=== PATIENT | male | born 1995 | race Caucasian/White ===

== ENCOUNTER 2021-02-17 20:38 | Emergency (ER) | payer OTHER, SELFPAY ==
[2021-02-17 20:40] VITALS: BP 151/87; PULSE 93; RESP 20; TEMP 37.1; O2SAT 98; BMI 40.1
--- NOTE | 2021-02-17 21:55 | ED.GENADULT ---
HPI - General Adult General Chief complaint: General Medical Stated complaint: Abscess Time Seen by Provider: 02/17/21 21:54 Source: patient Mode of arrival: ambulatory History of Present Illness HPI narrative: 25-year-old male without significant past medical history presents with pain and swelling at the gluteal cleft and states that he has had this before. He denies any associated fever, chills, difficulties with bowel movement. Related Data Allergies Allergy/AdvReac Type Severity Reaction Status Date / Time No Known Allergies Allergy Verified 02/17/21 20:40 Review of Systems Review of Systems: Pertinent positives and negatives as stated in HPI 10 point review of systems is otherwise negative. PMFSH Past Medical History Source: nursing notes reviewed Medical History Asthma Rectal abscess Social History Social History Advance Directives: No Advance Directives Information Provided: No Physical Exam Vital Signs: Vital Signs: Last Vital Signs Temp 98.0 F 02/17/21 22:00 Pulse 69 02/17/21 22:00 Resp 16 02/17/21 22:00 BP 168/83 H 02/17/21 22:00 Pulse Ox 99 02/17/21 22:00 Body Mass Index 40.1 VITAL SIGNS: Reviewed. GENERAL: Well developed, well nourished, in no acute distress. HEAD: Normocephalic/atraumatic EYES: PERRLA, EOMI OROPHARYNX: no oral lesions noted, posterior pharynx clear NECK: Supple, no adenopathy LUNGS: Normal breath sounds. No adventitious sounds or accessory muscle use. SpO2<99> CARDIOVASCULAR: Regular rate and rhythm without noted murmurs ABDOMEN: Soft, non-tender, non-distended with bowel sounds. Gluteus: Erythema, swelling with fluctuance in the center at location consistent with pilonidal cyst NEUROLOGIC: Alert and oriented x 4. Course Course Course Narrative: 25-year-old male history and clinical presentation consistent with pilonidal cyst. Patient underwent successful incision and drainage of the site with placement of packing. Patient was discharged in stable condition and instructed to follow-up with Surgical Services by calling the office in the morning. Procedures Abscess I/D Site: other (Pilonidal) Sedation/analgesia: none Local Anesthetic: lidocaine 2% and with epi Amount of anesthesia used (mL): 2 Technique: incised with blade Amount of fluid expressed (mL): 20 Sent for culture/gram staining?: No Irrigation: Yes Packing used?: iodoform Complications: pain Discharge Plan Discharge Clinical Impression: Chronic recurrent pilonidal cyst Patient Disposition: Home, Self-Care Instructions: Pilonidal Cyst (ED) Additional Instructions: Recommend using Tylenol/ibuprofen, [id number] for pain control as needed. You may remove the packing in 24-48 hours. You to follow-up with Surgical Services, the referral as listed below, please call the office Thursday morning. Return the emergency department for any acute worsening of symptoms. Referrals: Cleveland Dawson MD [Physician] - 2 days (Evaluation and management for recurrent pilonidal cyst. Incision and drainage performed here in the ER 02/17 and packing placed antibiotics deemed unnecessary at the time.)
[2021-02-17 22:00] VITALS: BP 168/83; PULSE 69; RESP 16; TEMP 36.7; O2SAT 99
[2021-02-17] MEDS: Lidocaine/Epineph/Tetracaine 3 ML GEL.PF.APP 2 ML TOPICAL (22:04)
[2021-02-17] MEDS: Lidocaine HCl 2% PF/Epi 1:200 20 ML VIAL INFILTRATI (23:01)
[2021-02-17] MEDS: Ketorolac Tromethamine 15 MG/ML VIAL IM (23:14)
[2021-02-17] MEDS: Acetaminophen 325 MG TABLET 975 MG PO (23:14)
== END 2021-02-17 23:18 | disposition home or self-care (01) ==
PROVIDERS: Emergency Provider Student in an Organized Health Care Education/Training Program
DX: L05.01 Pilonidal cyst with abscess (principal)
CPT/HCPCS: 10080; 90471; 99284; J1885

== ENCOUNTER 2022-10-02 05:17 | Emergency (ER) | payer OTHER, SELFPAY ==
--- NOTE | 2022-10-02 | ECG_ITS ---
Test Reason : CHEST CONGESTION Blood Pressure : / mmHG Vent. Rate : 090 BPM Atrial Rate : 090 BPM P-R Int : 212 ms QRS Dur : 086 ms QT Int : 340 ms P-R-T Axes : 041 037 048 degrees QTc Int : 415 ms Sinus rhythm with 1st degree A-V block Nonspecific T wave abnormality Abnormal ECG No previous ECGs available Referred By: Generic ED Physician Electronically Signed By:Tj Stauffer
[2022-10-02 05:52] VITALS: BP 154/99; PULSE 101; RESP 20; TEMP 37.2; O2SAT 98; BMI 41.3
[2022-10-02 06:23] VITALS: PULSE 88; O2SAT 97
[2022-10-02 06:27] LABS: MANUAL DIFF FLAG NO
[2022-10-02 06:31] LABS: Basophils Percent Auto 0.3 % (0-2); Hematocrit 43.3 % (42.0-52.0); Hemoglobin 15.1 g/dl (14.0-18.0); Imm Gran Abs Auto 0.04 X10*3/uL (0.00-0.03); Imm Gran Pct Auto 0.3 % (0.0-0.4); Lymphocytes Absolute Auto 1.3 X10*3/uL (1.2-4.9); Mean Corpuscular HGB Conc 34.9 g/dl (31.0-36.0); Mean Corpuscular Hemoglobin 28.7 pg (27.0-33.0); Mean Corpuscular Volume 82.2 fL (80.0-98.0); Mean Platelet Volume 9.6 fL (9.4-12.4); Monocytes Percent Auto 8.9 % (2-11); Neutrophils Absolute Auto 9.2 x10*3/uL (2.0-8.3); Neutrophils Percent Auto 79.5 % (45-73); Platelet Count 247 X10*3/uL (160-400); Red Blood Count 5.27 X10*6/uL (4.60-5.80); Red Cell Distribution Width 12.2 % (11.0-16.0); White Blood Count 11.6 X10*3/uL (4.8-10.8)
[2022-10-02 06:42] LABS: Anion Gap 13 (12-20); Blood Urea Nitrogen 8 mg/dL (9-16); Calcium 9.1 mg/dL (8.4-10.2); Carbon Dioxide 25 mmol/L (22-29); Chloride 104 mmol/L (96-108); Creatinine Clr Calc Pharmacy 146.3; Estimated Glomerular Filt Rate > 60; Glucose Random 115 mg/dL (60-115); Potassium 3.6 mmol/L (3.3-5.1); Sodium 138 mmol/L (135-145)
[2022-10-02 06:44] LABS: COVID-19 Test Negative (Negative); IDNOW Serial# 08D9AD1C
[2022-10-02 06:47] LABS: IDNOW Serial# 16C4AD1C; Influenza A Negative (Negative); Influenza B2 Negative (Negative)
[2022-10-02 06:50] LABS: Troponin-I High Sensitivity 6.3 ng/L (<3.5-35.0)
--- NOTE | 2022-10-02 07:07 | ED_ITS ---
HPI - URI/Sore Throat General Chief Complaint: Upper Respiratory Symptoms Stated Complaint: Possible COVID Time Seen by Provider: 10/02/22 06:51 Source: patient Mode of arrival: ambulatory Limitations: no limitations History of Present Illness HPI Narrative: 27-year-old male who presents emergency department for evaluation of headache, back pain, chest pain, fatigue and body aches. Patient states that his symptoms started yesterday at 11:00. He states that he has a headache which is a constant, pounding sensation in the back of his head which is 4/10. He denied neck pain or neck stiffness. He states that he also is having chest pain, he describes this is a dull ache located across his anterior chest which is worse with breathing and is 7/10. He is also complaining of a constant, throbbing lower back pain which is 10/10. He states that he had a subjective fever and chills, he had sweats. He denied rhinorrhea, sore throat or cough. He states he has mild shortness of breath with exertion. Denied nausea had 1 episode of vomiting yesterday. He denied diarrhea. He has noted urinary frequency and dysuria. He states that he has lost his appetite but has been able to drink fluids. 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 Patient has not been vaccinated against COVID. He does have a history of asthma but does not have an inhaler. Related Data Previous Rx's Medication Instructions Recorded albuterol sulfate 90 mcg/actuation 2 puff inhalation Q4-6H PRN 10/02/22 aerosol inhaler (ProAir HFA) shortness of breath or wheezing #6.7 grams nirmatrelvir 300 mg (150 mg See Rx Instructions PO .COMPLEX 10/02/22 x2)-ritonavir 100 mg tablet,dose #30 ea pack(EUA) (Paxlovid) Allergies Allergy/AdvReac Type Severity Reaction Status Date / Time No Known Allergies Allergy Verified 02/17/21 20:40 Review of Systems Review of Systems: Yes all other systems are reviewed and are negative PMFSH Past Medical History [facility] Narrative: Social history: 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 He states he occasionally smokes cigarettes. He occasionally drinks alcohol. He does smoke marijuana. Medical History Asthma Rectal abscess Social History Social History Alcohol intake: current Alcohol intake frequency: holidays/special occasions only Alcohol type: hard liquor Smoked in Last 30 Days: Yes Use of substances other than those prescribed or required for medical reasons: Yes Substance Use Type: Marijuana Substance Use Frequency: Weekly Advance Directives: No Physical Exam Vital Signs: Vital Signs: Last Vital Signs Temp 98.9 F 10/02/22 05:52 Pulse 80 10/02/22 07:37 Resp 16 10/02/22 07:37 BP 160/85 H 10/02/22 07:37 Pulse Ox 98 10/02/22 07:37 O2 Del Method 10/02/22 07:37 BMI result Body Mass Index 41.3 Const: General: cooperative and no acute distress Orientation/consciousness : oriented to person and oriented to place Limitations: no limitations HEENT: Head: Yes normal to inspection, Yes normocephalic and Yes atraumatic Ears: external ears normal General nose exam: Normal external nose present Face and sinus: Yes normal facial exam Mouth: Normal oral and palatal mucosa present Throat: Yes posterior oropharynx normal Eyes: General: appearance normal, both eyes and all related structures Pupils: Equal, round and reactive pupils present Neck: Neck: Yes normal visual inspection, Yes no lymphadenopathy, Yes trachea midline and Yes supple Chest: Chest palpation & inspection: normal inspection of the chest and normal palpation of entire chest wall Resp: Effort & Inspection: normal respiratory effort and able to speak in complete sentences Auscultation: clear to auscultation bilaterally Cardio: Rate: regular rate Rhythm: regular rhythm Heart sounds: S1 normal heart sound present, S2 normal heart sound present and no murmurs GI: Inspection: Yes normal to inspection Palpation (GI): Soft to palpation, nontender and no guarding Auscultation: normal bowel sounds : General: Yes no CVA tenderness Back/Spine/Pelvis: Back: no CVA tenderness Skin: General skin exam: no rashes or lesions noted Neuro: General: oriented to person and oriented to place Cranial nerves: Yes CN's II-XII intact bilaterally and Yes Equal, round and reactive pupils present Cognition (Neuro): normal cognition Motor exam (neuro): 5/5 motor strength present throughout Extrem: General: Yes normal to inspection Psych: Appearance: grossly normal Speech and movement: Normal speech and movement present Affect: normal affect Attitude: cooperative Thought process: Normal thought process present Thought content: Normal thought content present Course Course Course Narrative: 27-year-old male with a history of asthma, smoking, obesity with a BMI of 41.3, not vaccinated against COVID-19, who presents emergency department for evaluation of approximately 24 hours of viral-like illness with headache, chest pain, body aches, back pain, subjective fever, chills and diaphoresis. Patient also complains of frequency and dysuria Patient did not take any medications. Patient is also prior to coming to the emergency department. Patient's vital signs did reveal elevated blood pressure of 154/99 and tachycardia with a pulse of 101. Patient was afebrile and his O2 saturation was normal at 98%. Patient's physical examination was unremarkable and his lung exam exam was normal. Patient had a CBC, BMP and troponin. These tests were unremarkable ex cept for detectable but not elevated troponin of 6.3. Patient's 12 EKG was unremarkable. Patient's COVID-19, influenza and RSV tests were negative. I will obtain a urinalysis on this patient. At this time I am concerned the patient may have COVID-19 given the fact that he is not vaccinated, has asthma and is obese he is at increased risk for serious illness therefore I will start him on Paxlovid. Patient was treated with Tylenol 975 mg orally and ibuprofen 600 mg orally here in the emergency department. 0832: Patient's urinalysis did reveal protein otherwise was unremarkable. I do not think the patient has urinary tract infection. Patient is feeling better after the above treatment. Patient will be discharged home. Patient did have an elevated blood pressure here and I told him that this could be related to his illness but he should get a repeat blood pressure check when he is feeling better 2-3 weeks from now. Medications Administered Discontinued Medications Generic Name Dose Route Start Last Admin Trade Name Dillonq PRN Reason Stop Dose Admin Acetaminophen 975 mg 10/02/22 07:14 10/02/22 07:35 Acetaminophen 325 Mg Tablet PO 10/02/22 07:15 975 mg ONCE STA Administration Ibuprofen 600 mg 10/02/22 07:14 10/02/22 07:35 Ibuprofen 600 Mg Tablet PO 10/02/22 07:15 600 mg ONCE STA Administration Medical Decision Making Lab Data MDM Lab Attestation statement: I reviewed the patient's lab results. Result Diagrams: 10/02/22 06:20 10/02/22 06:20 Labs: Lab Results 10/02/22 10/02/22 10/02/22 Range/Units 06:20 06:20 06:20 WBC 11.6 H (4.8-10.8) X10*3/uL RBC 5.27 (4.60-5.80) X10*6/uL Hgb 15.1 (14.0-18.0) g/dl Hct 43.3 (42.0-52.0) % MCV 82.2 (80.0-98.0) fL MCH 28.7 (27.0-33.0) pg MCHC 34.9 (31.0-36.0) g/dl RDW 12.2 (11.0-16.0) % Plt Count 247 (160-400) X10*3/uL MPV 9.6 (9.4-12.4) fL Immature Gran % (Auto) 0.3 (0.0-0.4) % Neut % (Auto) 79.5 H (45-73) % Lymph % (Auto) 11.0 L (20-40) % [place] % (Auto) 8.9 (2-11) % Eos % (Auto) 0.0 (0-4) % Baso % (Auto) 0.3 (0-2) % Lymph # (Auto) 1.3 (1.2-4.9) X10*3/uL [place] # (Auto) 1.0 (0.1-1.2) X10*3/uL Eos # (Auto) 0.0 (0.0-0.4) X10*3/uL Baso # (Auto) 0.0 (0.0-0.2) X10*3/uL Abs Immat Gran (auto) 0.04 H (0.00-0.03) X10*3/uL Absolute Neuts (auto) 9.2 H (2.0-8.3) x10*3/uL Absolute Nucleated RBC 0.000 (0.0-0.012) X10*3/uL Nucleated RBC % (auto) 0.0 (0.0-0.2) /100WBC Sodium 138 (135-145) mmol/L Potassium 3.6 (3.3-5.1) mmol/L Chloride 104 (96-108) mmol/L Carbon Dioxide 25 (22-29) mmol/L Anion Gap 13 (12-20) BUN 8 L (9-16) mg/dL Creatinine 1.00 (0.5-1.4) mg/dL Estim Creat Clear Calc 146.3 Estimated GFR > 60 Random Glucose 115 (60-115) mg/dL Calcium 9.1 (8.4-10.2) mg/dL Troponin I High Sens 6.3 (<3.5-35.0) ng/L Urine Color Urine Appearance Urine pH (5.0-9.0) Ur Specific [place] (1.005-1.025) Urine Protein (Neg-Trace) mg/dL Urine Glucose (UA) (Negative) mg/dL Urine Ketones (Negative) mg/dL Urine Blood (Negative) Urine Nitrite (Negative) Ur Leukocyte Esterase (Negative) Urine RBC (0-2) /HPF Urine WBC (0-5) /HPF Ur Squamous Epith Cells (0-2) /HPF Urine Bacteria (None Seen) Hyaline Casts (0-2) /LPF COVID-19 (ZEN) (Negative) COVID-19 Clin Com Influenza Type A (EMILY) (Negative) Influenza Type B (EMILY) (Negative) Influenza A & B Note 10/02/22 10/02/22 10/02/22 Range/Units 06:20 06:20 07:26 WBC (4.8-10.8) X10*3/uL RBC (4.60-5.80) X10*6/uL Hgb (14.0-18.0) g/dl Hct (42.0-52.0) % MCV (80.0-98.0) fL MCH (27.0-33.0) pg MCHC (31.0-36.0) g/dl RDW (11.0-16.0) % Plt Count (160-400) X10*3/uL MPV (9.4-12.4) fL Immature Gran % (Auto) (0.0-0.4) % Neut % (Auto) (45-73) % Lymph % (Auto) (20-40) % [place] % (Auto) (2-11) % Eos % (Auto) (0-4) % Baso % (Auto) (0-2) % Lymph # (Auto) (1.2-4.9) X10*3/uL [place] # (Auto) (0.1-1.2) X10*3/uL Eos # (Auto) (0.0-0.4) X10*3/uL Baso # (Auto) (0.0-0.2) X10*3/uL Abs Immat Gran (auto) (0.00-0.03) X10*3/uL Absolute Neuts (auto) (2.0-8.3) x10*3/uL Absolute Nucleated RBC (0.0-0.012) X10*3/uL Nucleated RBC % (auto) (0.0-0.2) /100WBC Sodium (135-145) mmol/L Potassium (3.3-5.1) mmol/L Chloride (96-108) mmol/L Carbon Dioxide (22-29) mmol/L Anion Gap (12-20) BUN (9-16) mg/dL Creatinine (0.5-1.4) mg/dL Estim Creat Clear Calc Estimated GFR Random Glucose (60-115) mg/dL Calcium (8.4-10.2) mg/dL Troponin I High Sens (<3.5-35.0) ng/L Urine Color Dark Yellow Urine Appearance Clear Urine pH 5.5 (5.0-9.0) Ur Specific [place] >= 1.030 H (1.005-1.025) Urine Protein 30 (1+) H (Neg-Trace) mg/dL Urine Glucose (UA) Negative (Negative) mg/dL Urine Ketones Trace (Negative) mg/dL Urine Blood Negative (Negative) Urine Nitrite Negative (Negative) Ur Leukocyte Esterase Negative (Negative) Urine RBC 0-2 (0-2) /HPF Urine WBC 0-5 (0-5) /HPF Ur Squamous Epith Cells 0-2 (0-2) /HPF Urine Bacteria None Seen (None Seen) Hyaline Casts 0-2 (0-2) /LPF COVID-19 (ZEN) Negative (Negative) COVID-19 Clin Com See Note Influenza Type A (EMILY) Negative (Negative) Influenza Type B (EMILY) Negative (Negative) Influenza A & B Note See Note Independent Interpretation I performed an independent interpretation of an: EKG Interpretation: I interpreted this patient's EKG that was done at 06:07 hours as follows: Sinus rhythm with a first-degree AV block with MD interval 212 milliseconds, normal QRS and QTC duration, no ST segment elevation, no ST segment depression, inverted T-wave in lead 3, no PACs, no PVCs, except for the first-degree AV block this is an unremarkable EKG. Discharge Plan Discharge Clinical Impression: Viral syndrome, Suspected COVID-19 virus infection Patient Disposition: Home, Self-Care Instructions: COVID-19 (Coronavirus Disease 2019) (ED) Additional Instructions: Your blood work was normal. Your EKG was unremarkable. Your urinalysis was unremarkable. Your COVID-19, influenza and RSV tests were negative. I am concerned that your symptoms may be consistent with COVID-19 and sometimes early on and a COVID-19 infection the COVID-19 test can be falsely negative w hich means the test was negative but she still have the infection. Given the fact that you are not vaccinated against COVID-19, you are overweight and you have asthma, your increased risk for getting seriously ill from COVID-19 therefore I am starting you on an antiviral medicine the treats COVID-19 called Alec. Take this medication as prescribed. Take ibuprofen 200 mg pills, 3 pills every 6 hours as needed for pain or fever. Take Tylenol (acetaminophen) 500 mg pills, 2 pills every 4 to 6 hours as needed for pain or fever. Use the albuterol inhaler, 2 puffs every 4 hours as needed for shortness of breath. Follow-up with your doctor in 2 days. Please return to the emergency department if your symptoms get worse or if you develop any symptoms that are concerning to you. Please see the work note. Your blood pressure was elevated at 154/99 and 160/85. Normal blood pressures are 120/80 or less. Sometimes your blood pressure can be high due to you being sick. When you are feeling better, 1 month from now you should follow-up with your primary care doctor or get your blood pressure checked and if you have high blood pressure readings then you should talk to your doctor about getting started on medications for high blood pressure. High blood pressure over time leads to strokes, heart attacks and kidney failure dose important that you get follow-up care. Prescriptions: New Paxlovid (EUA) 300 mg (150 mg x 2)-100 mg tablets,dose pack See Rx Instructions .ROUTE .COMPLEX Qty: 30 0RF Rx Instructions: take TWO 150 mg tablets of nirmatrelvir with ONE 100 mg tablet of ritonavir twice daily for 5 days albuterol sulfate [ProAir HFA] 90 mcg/actuation HFA aerosol inhaler 2 puff inhalation Q4-6H PRN (Reason: shortness of breath or wheezing) Qty: 6.7 0RF Stand Alone Forms: Work/School Release
[2022-10-02] MEDS: Ibuprofen 600 MG TABLET PO (07:35)
[2022-10-02] MEDS: Acetaminophen 325 MG TABLET 975 MG PO (07:35)
[2022-10-02 07:37] VITALS: BP 160/85; PULSE 80; RESP 16; O2SAT 98
[2022-10-02 07:38] LABS: Appearance Urine Clear; Color Urine Dark Yellow; Glucose Urine UA Negative (Negative); Leukocyte Esterase Urine Negative (Negative); Nitrite Urine Negative (Negative); PH 5.5 (5.0-9.0); Specific Gravity - Urine >= 1.030 (1.005-1.025); UMIC TRIGGER UACC YES; Urine Blood Negative (Negative); Urine Ketones Trace mg/dL (Negative); Urine Protein 30 (1+) mg/dL (Neg-Trace)
--- NOTE | 2022-10-02 07:38 | PC.NURSE ---
pt alert and oriented. complains of headache, back pain 05/21. Covid test negative but per provider will be treated as Covid. gave him tylenol and motrin. UA sent to lab
[2022-10-02 07:43] LABS: Bacteria Urine None Seen (None Seen); Hyaline Casts Urine 0-2 /LPF (0-2); RBC Urine 0-2 /HPF (0-2); Squamous Epithelial Cell Urine 0-2 /HPF (0-2); WBC Urine 0-5 /HPF (0-5)
== END 2022-10-02 09:02 | disposition home or self-care (01) ==
PROVIDERS: Emergency Provider Emergency Medicine Emergency Medical Services
DX: B34.9 Viral infection, unspecified (principal); Z20.822 Contact with and (suspected) exposure to COVID-19
CPT/HCPCS: 36415; 80048; 81001; 84484; 85025; 87502; 87635; 93005; 99283; 99285